=== PATIENT | female | born 1970 | race Caucasian/White ===

== ENCOUNTER 2017-05-02 12:46 | Outpatient (RCR) | payer OTHER, SELFPAY | END 2017-05-02 17:00 | disposition home or self-care (01) | LOC: PT 12:46 | PROVIDERS: Family Provider Nurse Practitioner Family; Visit Provider Nurse Practitioner Family | DX: M54.5 Low back pain (principal) | CPT/HCPCS: 97012; 97035; 97110; 97140 ==

== ENCOUNTER → 2019-04-12 16:08 | Outpatient (CLI) | payer BC, MEDICAID, SELFPAY ==
--- NOTE | 2019-04-12 | MM_ITS ---
PROCEDURE: MM DIG SCREENING MAMM BI W/CAD Digital Breast Tomosynthesis Included CLINICAL INDICATION: ROUTINE SCREENING No personal or family history of breast cancer. COMPARISON: [facility] DIGITAL SCREEN BILATERAL MOBILE from 07/06/2017 TECHNIQUE: Standard CC and MLO images and 3D Tomosynthesis was obtained. R2 CAD reviewed. FINDINGS: The breasts are composed primarily of fat with scattered fibroglandular densities throughout each breast. Alonso images are helpful in demonstrating couple of small benign-appearing nodular density subareolar region left breast likely small cysts. There is no suspicious lesion in either breast and no suspicious microcalcifications. IMPRESSION: Fibrofatty parenchyma with no suspicious lesions seen BI-RAD Category: 2 Benign Finding(s) FOLLOW-UP: 1YR 1 Year Follow-up (A letter has been sent to the patient regarding results of the study.) Dictated by: Dr. Masoud Rabago MD 04/19/2019 09:[address] Masoud Rabago MD in [place] 04/19/2019 09:48
== END ==
PROVIDERS: PCP Nurse Practitioner Family; Visit Provider Nurse Practitioner Family
DX: Z12.31 Encounter for screening mammogram for malignant neoplasm of breast (principal)
CPT/HCPCS: 77063; 77067

== ENCOUNTER 2020-07-06 15:48 | Outpatient (RCR) | payer MEDICAID, SELFPAY | END 2020-08-10 13:35 | disposition home or self-care (01) | LOC: PT.CARL 15:48 | PROVIDERS: PCP Nurse Practitioner Family; Visit Provider Nurse Practitioner Family | DX: M54.12 Radiculopathy, cervical region (principal); M70.62 Trochanteric bursitis, left hip; M70.61 Trochanteric bursitis, right hip; M79.7 Fibromyalgia; M54.16 Radiculopathy, lumbar region; M25.551 Pain in right hip; M25.552 Pain in left hip; M79.18 Myalgia, other site | CPT/HCPCS: 97163 ==

== ENCOUNTER 2023-08-10 13:45 | Outpatient (CLI) | payer MEDICAID, SELFPAY ==
--- NOTE | 2023-08-10 13:45 | MM_ITS ---
PROCEDURE INFORMATION: Exam: MG Bilateral Screening 3D Mammography Exam date and time: 08/10/2023 1:41 PM Age: 53 years old Clinical indication: Screening examination; Additional info: Screening mm TECHNIQUE: Imaging protocol: Bilateral Screening tomosynthesis and 2D mammography including computer-aided detection (CAD) when performed. COMPARISON: 1. MG MM DIG SCREENING MAMM BI W/CAD 04/12/2019 4:21 PM 2. MG AXEL DIGITAL SCREEN BILATERAL MOBILE 07/06/2017 3:22 PM FINDINGS: MAMMOGRAPHY: Breast composition: There are scattered areas of fibroglandular density. Mass: No suspicious masses. Architectural distortion: No suspicious distortion. Calcifications: No suspicious calcifications. Asymmetric density: None. Skin thickening: None. Axillary adenopathy: None. IMPRESSION: No mammographic evidence of malignancy. Annual screening is recommended unless otherwise clinically indicated. ASSESSMENT: BI-RADS Category 1: Negative
--- NOTE | 2023-08-10 13:47 | XR_ITS ---
FINAL REPORT CLINICAL HISTORY: pleuritic left sided chest pain COMPARISON: 02/07/2023 FINDINGS: No acute pulmonary density is evident. There is no evidence of effusion. Old calcified granulomatous disease is noted. The mediastinum has a normal appearance. The cardiac silhouette is unremarkable. IMPRESSION: No acute process. Reviewed, Interpreted and Dictated by Mendoza Sam MD Transcribed by Joanne Andujar Authenticated and [facility]
== END 2023-08-10 23:59 | disposition home or self-care (01) ==
LOC: RAD 13:45
PROVIDERS: PCP Family Medicine; Visit Provider Family Medicine
DX: Z12.31 Encounter for screening mammogram for malignant neoplasm of breast (principal); R07.9 Chest pain, unspecified
CPT/HCPCS: 71046; 77063; 77067

== ENCOUNTER 2023-08-25 07:53 | Outpatient (CLI) | payer MEDICAID, SELFPAY ==
--- NOTE | 2023-08-25 07:53 | US_ITS ---
FINAL REPORT CLINICAL HISTORY: abdominal pain COMPARISON: None FINDINGS: Sonographic images of the abdomen were obtained. The liver has an unremarkable appearance with normal echogenicity. Reported history of cholecystectomy. There is a cystic structure near the gallbladder fossa measuring 2.6 cm of uncertain etiology. The common hepatic duct measures 11 mm. The pancreas is partially obscured. The spleen size is normal. The right kidney measures 10.4 cm in length. The left kidney measures 10.1 cm in length. There is normal renal echogenicity. There is no evidence of hydronephrosis. The aorta has an unremarkable appearance. Limited images of the inferior vena cava are unremarkable. IMPRESSION: Cystic structure near the gallbladder fossa of uncertain etiology and ductal dilatation with reported history of cholecystectomy. Recommend MRCP. Reviewed, Interpreted and Dictated by Jose J Lucas III, MD Transcribed by Joanne Andujar Authenticated and [facility]
== END 2023-08-25 23:59 | disposition home or self-care (01) ==
LOC: RAD 07:53
PROVIDERS: PCP Family Medicine; Visit Provider Family Medicine
DX: R10.11 Right upper quadrant pain (principal)
CPT/HCPCS: 76700

== ENCOUNTER 2024-09-27 16:53 | Outpatient (CLI) | payer MEDICAID, SELFPAY ==
--- OUTSIDE RECORDS SUMMARY | 2024-09-27 16:56 | XMS_ITS | Clinical Summary ---
Author Organization [facility] Address [address] [place] [address] Care Team Providers Care Door Closer Mechanic Name Role Phone Gilbert Moreau MD Primary Care Provider [phone] Allergies No known active allergies Medications pantoprazole (PROTONIX) 40 MG EC tablet Take 40 mg by mouth daily. Active diclofenac (VOLTAREN) 50 MG EC tablet 10/08/2018 Active gabapentin (NEURONTIN) 800 MG tablet Take 800 mg by mouth 4 (Four) Times a Day. 2 12/03/2018 Active meloxicam (MOBIC) 15 MG tablet 11/28/2018 Active omeprazole (priLOSEC) 40 MG capsule 11/28/2018 Active pravastatin (PRAVACHOL) 80 MG tablet 11/28/2018 Active tiZANidine (ZANAFLEX) 4 MG tablet 11/28/2018 Active Active Problems No known active problems Immunizations Immunization Administration Dates Next Due PPD Test 06/05/2018 Family History Medical History Relation Name Comments Diabetes Father Stroke Father Relation Name Status Comments Father Mother Alive Social History Tobacco Use Types Packs/Day Years Used Date Smoking Tobacco: Every Day Cigarettes Smokeless Tobacco: Never Tobacco Cessation:Ready to Q uit: No; Counseling Given: No Abuse Screen Answer Date Recorded Unsafe at Home or Work/School Not on file Feels Threatened by Someone? Not on file 11/2022 Does Anyone Keep You from Co ntacting Others or Doint Things Outside the Home? Not on file 11/22/2022 Physical Sign of Abuse Present Not on file 1 Housing Stability Answer Date Recorded Current Living Arrangements Not on file 11/13 Potentially Unsafe Housing Conditions Not on dov e 11/22/2022 Family and Community Support Answer Jadiel e Recorded Help with Day-to-Day Activities Not on file 11/22/2022 Lonely or Isolated Not on file 11/22/2022 Employment Answer Date Recorded Do you want help finding or keeping work or a rolo b? Not on file 11/22/2022 Disabilities Answer Date Recorded Concentrating, Remembering, or Making Decisions Difficulty Not on file 11/22/2022 Doing Errands Independently Difficulty Not on fi le 11/22/2022 Education Answer Date Recorded Help with school or training? Not on file Preferred Language Not on file 11/22/2022 Comments No Sex and Gender Information Value Date Recorded Sex Assigned at Not on file Legal Sex Female 1:36 PM EDT Gender Identity Not on file Sexual Orientation Not on file Last Filed Vital Signs Vital Sign Reading Time Taken Comments Blood Pressure 118/70 12/25/2018 2:00 PM EST Pulse 85 12/25/2018 2:00 PM EST Temperature 36.8 C (98.2 F) 12/25/2018 2:00 PM EST Respiratory Rate 15 12/25/2018 2:00 PM EST Oxygen Saturation 96% 12/25/2018 2:00 PM EST Inhaled Oxygen Concentration - - Weight 78 kg (172 lb) 12/25/2018 2:00 PM EST Height 157.5 cm (5' 2 ) 12/25/2018 2:00 PM EST Body Mass Index 31.46 12/25/2018 2:00 PM EST Plan of Treatment Health Maintenance Due Date Last Done Comments Annual Gynecologic Pelvic and Breast Exam 1970 TDAP/TD VACCINES (1 - Tdap) 1989 MAMMOGRAM 04/04/2015 04/04/2013, 03/25/2013 COLOGUARD 04/21/2015 COLON CANCER SCREENING 5 YEA R SIGMOIDOSCOPY 04/21/2015 COLONOSCOPY 04/21/2015 COLORECTAL CANCER SCREENING 04/21/2015 CT COLONOGRAPHY 04/21/2015 FECAL OCCULT BLOOD TEST 04/21/2015 FIT Testing (1 year) 04/21/2015 ANNUAL PHYSICAL 06/05/2018 HEPATITIS C SCREENING 06/05/2018 Pneumococcal Vaccine 50+ (1 of 1 - PCV) 2020 ZOSTER VACCINE (1 of 2) 2020 COVID-19 Vaccine (1 - season) 2023 INFLUENZA VACCINE 11/13/2024 Procedures Procedure Name Priority Date/Time Associated Diagnosis Comments MAMMO DIAGNOSTIC BILATERAL W CAD Routine 04/04/2013 8:37 AM EST from Last 3 Months or Most Recently Relevant to Health Maintenance Results * MAMMOGRAPHY DIAGNOSTIC BILATERAL (04/04/2013 8:37 AM EST) Anatomical Region Laterality Modality Breast Bilateral Mammography 04/04/2013 8:37 AM EST Narrative 04/04/2013 12:29 PM EST BILATERAL DIAGNOSTIC DIGITAL MAMMOGRAM AND RIGHT BREAST ULTRASOUND HISTORY: 42-year-old patient recalled from baseline screening mammography dated 03/25/13 for bilateral asymmetries. TECHNIQUE: Bilateral CC and right MLO focal compression views, right ML view, and right ML focal compression views were obtained. Furthermore, focused sonographic images were obtained of the entire right breast. COMPARISON: 03/25/13. FINDINGS: The asymmetry in the left lateral breast improved on focal compression imaging. No underlying mass or area of distortion was visualized. Additional mammographic imaging of the right breast demonstrates persistent nodularity in the subareolar region and far posterior right 12:00/periareolar region. Ultrasound imaging of the right breast demonstrates a 1.3 cm probable complicated cyst in the subareolar region. Mobile debris was visualized at real-time imaging. Furthermore, there is a 1.0 cm lymph node in the deep right 12:00/periareolar position that may correlate to nodularity noted on mammographic imaging. Finally, there is a benign appearing 0.6 cm oval, isoechoic mass in the 12:00 position located 6-7 cm from the nipple. Short interval ultrasound followup is recommended. IMPRESSION- 1. No residual mammographic abnormality is identified in the left breast on additional imaging. 2. Persistent mammographic nodularity in the right 12:00/periareolar region may correlate to a lymph node identified on ultrasound imaging. 3. Persistent mammographic nodularity in the right subareolar region corresponds to a probable complicated cyst identified on ultrasound imaging. RECOMMENDATION: Short interval right mammographic and ultrasound followup in 6 months. Routine right mammographic views and focused ultrasound images of the right subareolar position and right 12:00 position (6-7 cm from the nipple) will be obtained at that time. BI-RADS CATEGORY III, PROBABLY BENIGN iCAD was utilized. The standard false-negative rate of mammography is between 10 and 25%. Complex patterns or increased breast density will markedly elevate the false-negative rate of mammography. A results letter, in lay terminology, will be given to the patient at the conclusion of the exam. Warehouse Delivery Manager- VAHE Miller Radiologist- ALLA CHARLES Releasing Radiologist- ALLA CHARLES Released Date Time- 04/04/13 1833 Sheree Brooks MD IM MAMMOGRAPHY ORDERABLES Final Result from Last 3 Months or Most Recently Relevant to Health Maintenance Insurance [employer] Care Teams Door Closer Mechanic Relationship Specialty Start Date End Date Gilbert Moreau MD [address] [place] [address] [id number] [id number] PCP - General Internal Medicine 11/02/15
--- OUTSIDE RECORDS SUMMARY | 2024-09-27 16:56 | XMS_ITS | Clinical Summary ---
Author Organization [facility] Address [address] [place] [address], [address] [place] [address] Care Team Providers Care Helmet Coverer Name Role Phone Unavailable Primary Care Provider Unavailabl e Social History Tobacco Use Types Packs/Day Years Used Date Smoking Tobacco: Never Assessed Comments Unknown Sex and Gender Information Value Date Recorded Sex Assigned at Not on file Legal Sex Female 2:48 PM EDT Gender Identity Not on file Sexual Orientation Not on file Plan of Treatment Not on file
--- NOTE | 2024-09-27 17:00 | MM_ITS ---
PROCEDURE INFORMATION: Exam: MG Bilateral Screening 3D Mammography Exam date and time: 09/27/2024 4:57 PM Age: 54 years old Clinical indication: Screening. No family history of breast cancer. TECHNIQUE: Imaging protocol: Bilateral Screening tomosynthesis and 2D mammography including computer-aided detection (CAD) when performed. COMPARISON: 1. MG MM DIG SCREENING MAMM BI W/CAD 08/10/2023 1:41 PM 2. MG MM DIG SCREENING MAMM BI W/CAD 04/12/2019 4:21 PM 3. MG AXEL DIGITAL SCREEN BILATERAL MOBILE 07/06/2017 3:22 PM FINDINGS: MAMMOGRAPHY: Breast composition: There are scattered areas of fibroglandular density. Mass: No suspicious mass. Architectural distortion: None. Calcifications: No suspicious calcifications. Asymmetric density: None. Skin thickening: None. Axillary adenopathy: None. IMPRESSION: No mammographic evidence of malignancy. Annual screening is recommended unless otherwise clinically indicated. ASSESSMENT: BI-RADS Category 1: Negative.
== END 2024-09-27 23:59 | disposition home or self-care (01) ==
LOC: RAD 16:54
PROVIDERS: PCP Family Medicine; Visit Provider Family Medicine
DX: Z12.31 Encounter for screening mammogram for malignant neoplasm of breast (principal); R92.323 Mammographic fibroglandular density, bilateral breasts
CPT/HCPCS: 77063; 77067

== ENCOUNTER 2025-01-17 13:32 | Outpatient (CLI) | payer MEDICAID, SELFPAY ==
--- NOTE | 2025-01-17 13:36 | XR_ITS ---
FINAL REPORT CLINICAL HISTORY: right hip pain FINDINGS: AP and frog leg views of the right hip were obtained. There is no acute fracture or dislocation. Joint space is preserved. Soft tissues are unremarkable. IMPRESSION: No acute osseous abnormality of the right hip. Reviewed, Interpreted and Dictated by Kanchan Driver MD Transcribed by Luma Marie Authenticated and . [facility]
--- NOTE | 2025-01-17 13:36 | XR_ITS ---
FINAL REPORT CLINICAL HISTORY: left hip pain FINDINGS: AP and frog leg views of the left hip were obtained. There is no acute fracture or dislocation. Joint space is preserved. Soft tissues are unremarkable. IMPRESSION: No acute osseous abnormality of the left hip. Reviewed, Interpreted and Dictated by Kanchan Driver MD Transcribed by Luma Marie Authenticated and . [facility]
== END 2025-01-17 23:59 | disposition home or self-care (01) ==
LOC: RAD 13:34
PROVIDERS: PCP Family Medicine; Visit Provider Student in an Organized Health Care Education/Training Program
DX: M25.551 Pain in right hip (principal); M25.552 Pain in left hip
CPT/HCPCS: 73502